=== PATIENT | male | born 1990 | race Caucasian/White ===

== ENCOUNTER 2016-11-24 19:24 | Emergency (ER) | payer OTHER ==
[~2016-11-24] VITALS: Ht 182.9 cm; Wt 79.5 kg
[2016-11-24] MEDS ORDERED: LIDOCAINE 2% MDV 20 ML VIAL SC ONE (21:00)
[2016-11-24 21:38] VITALS: BP 138/76
== END 2016-11-24 21:58 | disposition home or self-care (01) ==
LOC: M ED 19:24
DX: S61.011A Laceration without foreign body of right thumb without damage to nail, initial encounter (principal); W26.8XXA Contact with other sharp object(s), not elsewhere classified, initial encounter; Y92.018 Other place in single-family (private) house as the place of occurrence of the external cause; Y93.89 Activity, other specified; Y99.8 Other external cause status